=== PATIENT | female | born 1940 ===

== ENCOUNTER → 2017-09-21 | Emergency (ER) | payer OTHER | END | disposition home or self-care (01) | LOC: ER 08:55 | DX: R42 Dizziness and giddiness (principal) ==

== ENCOUNTER 2018-04-23 10:52 | Emergency (ER) | payer OTHER ==
[~2018-04-23] VITALS: Ht 154.9 cm; Wt 54.4 kg
[2018-04-23] MEDS ORDERED: GABAPENTIN300 MG PO (12:05)
[2018-04-23] MEDS ORDERED: JANUMET 50-5001 EACH PO (12:06)
[2018-04-23] MEDS ORDERED: DONEPEZIL HCL O10 MG PO (12:07)
== END 2018-04-23 17:02 | disposition home or self-care (01) ==
LOC: ER 10:52
DX: R53.1 Weakness (principal); E86.0 Dehydration; R42 Dizziness and giddiness